=== PATIENT | female | born 1955 | race African-American/Black ===

== ENCOUNTER 2018-09-08 23:30 | Inpatient (IN) ==
[2018-09-09] MEDS ORDERED: ONDANSETRON 4 MG/2 ML VIAL IV STA (00:23)
[2018-09-09] MEDS ORDERED: MORPHINE 4 MG/1 ML VIAL IV STA (00:23)
[2018-09-09] MEDS ORDERED: hydrALAZINE 20 MG/1 ML VIAL IV STA (00:34)
[2018-09-09] MEDS ORDERED: cefTRIAXone 1,000 MG in SODIUM CHLORIDE 0.9% 100 ML IV STA (01:00)
[2018-09-09] MEDS ORDERED: VANCOMYCIN INJ 1,500 MG in SODIUM CHLORIDE 0.9% 500 ML IV STA (01:00)
[2018-09-09] MEDS ORDERED: cefTRIAXone 1,000 MG in SYRINGE 1 EACH IV STA (01:02)
[2018-09-09 01:17] LABS: Basophils % 0.5 % (0.0-0.8); Eosinophils % 0.1 % (0.00-10.9); Hematocrit 36.9 VOL% (35.7-47.0); Hemoglobin 12.2 GM/DL (12.0-16.0); Immature Granulocytes % 0.5 %; Immature Granulocytes Absolute 0.04 #; Lymphocytes % 11.7 % (21.3-54.2); Mean Corpuscular HGB Conc 33.1 GM/DL (32-36); Mean Corpuscular Hemoglobin 30 PG (27-34); Mean Corpuscular Volume 90.7 FL (87-102); Monocytes % 11.2 % (1.7-12.7); Neutrophils # 6.5 10*3/uL (1.4-7.4); Platelet Count 256 T/CUMM (130-400); Red Blood Count 4.07 MC/CUMM (3.8-5.5); Red Cell Distribution Width 12.4 % (9.3-17.3); White Blood Count 8.6 T/CUMM (4-12)
[2018-09-09 01:23] LABS: PT Patient Result 10.8 SECS
[2018-09-09 01:41] LABS: Albumin 3.4 G/DL (3.4-5.0); Bilirubin,Total 0.9 MG/DL (0.2-1.0); Calcium 9.3 MG/DL (8.5-10.1); Osmolality,Calculated 279.2 MOS/KG (273-304); Potassium 4.6 MMOL/L (3.5-5.1); Total Protein 7.9 G/DL (6.4-8.3)
[2018-09-09 02:02] LABS: Lymphocytes,Synovial Fluid 4 %; Neutrophils,Synovial Fluid 96 %
[2018-09-09 02:10] LABS: Lactic Acid 0.9 MMOL/L (0.4-2.0)
[2018-09-09 02:29] LABS: Sedimentation Rate-Westergren 63 MM/HR (0-30)
[2018-09-09] MEDS ORDERED: VANCOMYCIN 1,000 MG VIAL ONE ×2 (02:54→03:03)
[2018-09-09] MEDS ORDERED: ONDANSETRON 4 MG/2 ML VIAL IV PRN (02:59)
[2018-09-09] MEDS ORDERED: GLUCAGON 1 MG VIAL IM PRN (02:59)
[2018-09-09] MEDS ORDERED: diphenhydrAMINE CAP 25 MG CAPSULE PO PRN (02:59)
[2018-09-09] MEDS ORDERED: ZALEPLON 5 MG CAPSULE PO PRN (02:59)
[2018-09-09] MEDS ORDERED: MORPHINE 4 MG/1 ML VIAL IV PRN (02:59)
[2018-09-09] MEDS ORDERED: PROMETHAZINE 25 MG/1 ML VIAL IM PRN (02:59)
[2018-09-09] MEDS ORDERED: NICOTINE 21 MG/24 HR PATCH TRANSDERM PRN (02:59)
[2018-09-09] MEDS ORDERED: LACTULOSE 20 GM/30 ML UDCUP PO PRN (02:59)
[2018-09-09] MEDS ORDERED: ACETAMINOPHEN 325 MG TABLET PO PRN (02:59)
[2018-09-09] MEDS: SODIUM CHLORIDE 0.9% 1,000 ML IV SCH ×2 (05:43→18:07)
[2018-09-09] MEDS: INSULIN ASPART PROTAMINE/ASPART 70/30 100 UNIT/ML SUBCUT SCH ×2 (09:32→20:03)
[2018-09-09] MEDS: POTASSIUM CHLORIDE 10 MEQ TABLET PO SCH (09:34)
[2018-09-09] MEDS: LOSARTAN 50 MG TABLET PO SCH ×2 (09:34→20:03)
[2018-09-09] MEDS: PANTOPRAZOLE 40 MG TABLET PO SCH (09:34)
[2018-09-09] MEDS: CARVEDILOL 3.125 MG TABLET PO SCH ×2 (09:34→18:56)
[2018-09-09] MEDS: ASPIRIN EC 81 MG TABLET PO SCH (09:35)
[2018-09-09] MEDS: INSULIN REGULAR 100 UNIT/ML SUBCUT SCH ×4 (09:43→20:03)
[2018-09-09 09:57] LABS: Cholesterol Crystals None Seen /LPF
[2018-09-09] MEDS ORDERED: INSULIN ASPART PROTAMINE/ASPART 70/30 100 UNIT/ML SUBCUT SCH (12:00)
[2018-09-09] MEDS: DEXTROSE 50% 25 GM/50 ML SYRINGE IV PRN ×2 (15:34→21:58)
[2018-09-09] MEDS: LOVASTATIN 20 MG TABLET PO SCH (18:57)
[2018-09-09] MEDS: NAPROXEN 500 MG TABLET PO SCH (20:03)
[2018-09-09] MEDS: hydrALAZINE 20 MG/1 ML VIAL IV PRN (20:04)
[2018-09-09] MEDS: VANCOMYCIN INJ 1,500 MG in SODIUM CHLORIDE 0.9% 500 ML IV SCH (22:00)
[2018-09-09] MEDS ORDERED: CYCLOBENZAPRINE 10 MG TABLET PO PRN (23:55)
[2018-09-10] MEDS: cefTRIAXone 1,000 MG in SYRINGE 1 EACH IV SCH (03:12)
[2018-09-10 05:33] LABS: Calcium 8.5 MG/DL (8.5-10.1); Potassium 4.5 MMOL/L (3.5-5.1)
[2018-09-10 05:38] LABS: Basophils % 0.5 % (0.0-0.8); Eosinophils % 0.6 % (0.00-10.9); Hematocrit 33.1 VOL% (35.7-47.0); Hemoglobin 10.7 GM/DL (12.0-16.0); Immature Granulocytes % 0.2 %; Immature Granulocytes Absolute 0.01 #; Lymphocytes # 1.1 10*3/uL (1.4-4.0); Lymphocytes % 16.9 % (21.3-54.2); Mean Corpuscular HGB Conc 32.3 GM/DL (32-36); Mean Corpuscular Hemoglobin 30 PG (27-34); Mean Corpuscular Volume 91.9 FL (87-102); Mean Platelet Volume 11.2 FL (9.6-12.0); Neutrophils # 4.2 10*3/uL (1.4-7.4); Neutrophils % 66.8 % (38.7-73.9); Platelet Count 219 T/CUMM (130-400); Red Cell Distribution Width 12.7 % (9.3-17.3); White Blood Count 6.3 T/CUMM (4-12)
[2018-09-10] MEDS: INSULIN REGULAR 100 UNIT/ML SUBCUT SCH ×4 (08:25→21:35)
[2018-09-10] MEDS: CARVEDILOL 3.125 MG TABLET PO SCH ×3 (08:42→17:24)
[2018-09-10] MEDS: PANTOPRAZOLE 40 MG TABLET PO SCH (08:43)
[2018-09-10] MEDS: ASPIRIN EC 81 MG TABLET PO SCH (08:43)
[2018-09-10] MEDS: LOSARTAN 50 MG TABLET PO SCH ×2 (08:43→21:45)
[2018-09-10] MEDS: INSULIN ASPART PROTAMINE/ASPART 70/30 100 UNIT/ML SUBCUT SCH ×2 (08:43→21:46)
[2018-09-10] MEDS: POTASSIUM CHLORIDE 10 MEQ TABLET PO SCH (08:43)
[2018-09-10] MEDS: NAPROXEN 500 MG TABLET PO SCH ×2 (08:43→21:45)
[2018-09-10] MEDS: VANCOMYCIN INJ 1,500 MG in SODIUM CHLORIDE 0.9% 500 ML IV SCH (15:55)
[2018-09-10] MEDS: LOVASTATIN 20 MG TABLET PO SCH (17:24)
[2018-09-10] MEDS: SODIUM CHLORIDE 0.9% 1,000 ML IV SCH (23:15)
[2018-09-11] MEDS: cefTRIAXone 1,000 MG in SYRINGE 1 EACH IV SCH (07:12)
[2018-09-11 07:19] LABS: Basophils # 0.1 10*3/uL (0.0-0.2); Basophils % 1.1 % (0.0-0.8); Eosinophils # 0.2 10*3/uL (0.0-0.87); Eosinophils % 3.2 % (0.00-10.9); Hemoglobin 10.1 GM/DL (12.0-16.0); Immature Granulocytes % 0.2 %; Immature Granulocytes Absolute 0.01 #; Lymphocytes % 20.3 % (21.3-54.2); Mean Corpuscular HGB Conc 31.6 GM/DL (32-36); Mean Corpuscular Hemoglobin 30 PG (27-34); Mean Corpuscular Volume 94.1 FL (87-102); Mean Platelet Volume 11.3 FL (9.6-12.0); Monocytes # 0.7 10*3/uL (0.11-0.8); Monocytes % 14.3 % (1.7-12.7); Neutrophils # 2.9 10*3/uL (1.4-7.4); Neutrophils % 60.9 % (38.7-73.9); Platelet Count 198 T/CUMM (130-400); White Blood Count 4.7 T/CUMM (4-12)
[2018-09-11 07:38] LABS: Calcium 8.9 MG/DL (8.5-10.1); Osmolality,Calculated 281.7 MOS/KG (273-304)
[2018-09-11] MEDS ORDERED: traMADol 50 MG TABLET PO PRN (08:58)
[2018-09-11] MEDS: INSULIN REGULAR 100 UNIT/ML SUBCUT SCH ×4 (09:46→21:21)
[2018-09-11] MEDS: ASPIRIN EC 81 MG TABLET PO SCH (09:47)
[2018-09-11] MEDS: CARVEDILOL 3.125 MG TABLET PO SCH ×2 (09:47→16:31)
[2018-09-11] MEDS: POTASSIUM CHLORIDE 10 MEQ TABLET PO SCH (09:47)
[2018-09-11] MEDS: LOSARTAN 50 MG TABLET PO SCH ×2 (09:47→21:22)
[2018-09-11] MEDS: PANTOPRAZOLE 40 MG TABLET PO SCH (09:48)
[2018-09-11] MEDS: INSULIN ASPART PROTAMINE/ASPART 70/30 100 UNIT/ML SUBCUT SCH ×2 (09:49→21:23)
[2018-09-11] MEDS: VANCOMYCIN INJ 1,500 MG in SODIUM CHLORIDE 0.9% 500 ML IV SCH (09:49)
[2018-09-11] MEDS ORDERED: VANCOMYCIN INJ 1,500 MG in SODIUM CHLORIDE 0.9% 500 ML IV SCH (15:00)
[2018-09-11] MEDS: LOVASTATIN 20 MG TABLET PO SCH (16:31)
[2018-09-11] MEDS: CEFEPIME 1,000 MG in SYRINGE 1 EACH IV SCH ×2 (16:31→23:19)
[2018-09-11] MEDS ORDERED: LACTATED RINGERS 1,000 ML IV SCH (23:30)
[2018-09-12] MEDS: hydrALAZINE 20 MG/1 ML VIAL IV PRN (04:33)
[2018-09-12 05:41] LABS: Basophils # 0.1 10*3/uL (0.0-0.2); Basophils % 1.6 % (0.0-0.8); Eosinophils # 0.1 10*3/uL (0.0-0.87); Eosinophils % 2.8 % (0.00-10.9); Hematocrit 30.7 VOL% (35.7-47.0); Immature Granulocytes % 0.5 %; Immature Granulocytes Absolute 0.02 #; Lymphocytes # 1.1 10*3/uL (1.4-4.0); Lymphocytes % 24.4 % (21.3-54.2); Mean Corpuscular HGB Conc 32.6 GM/DL (32-36); Mean Corpuscular Hemoglobin 30 PG (27-34); Mean Corpuscular Volume 92.7 FL (87-102); Mean Platelet Volume 11.2 FL (9.6-12.0); Monocytes # 0.5 10*3/uL (0.11-0.8); Monocytes % 12.3 % (1.7-12.7); Neutrophils # 2.5 10*3/uL (1.4-7.4); Neutrophils % 58.4 % (38.7-73.9); Platelet Count 231 T/CUMM (130-400); Red Blood Count 3.31 MC/CUMM (3.8-5.5); Red Cell Distribution Width 12.6 % (9.3-17.3); White Blood Count 4.3 T/CUMM (4-12)
[2018-09-12 06:11] LABS: Osmolality,Calculated 287.1 MOS/KG (273-304); Potassium 4.4 MMOL/L (3.5-5.1)
[2018-09-12] MEDS: INSULIN REGULAR 100 UNIT/ML SUBCUT SCH ×4 (06:46→23:16)
[2018-09-12] MEDS: CARVEDILOL 3.125 MG TABLET PO SCH ×3 (06:47→17:21)
[2018-09-12] MEDS: LOSARTAN 50 MG TABLET PO SCH ×3 (06:47→23:03)
[2018-09-12] MEDS: CEFEPIME 1,000 MG in SYRINGE 1 EACH IV SCH ×2 (06:48→15:41)
[2018-09-12] MEDS ORDERED: BACITRACIN OINT 0.9 GM PACK TOP ONE (08:21)
[2018-09-12] MEDS ORDERED: MAGNESIUM HYDROXIDE SUSP 30 ML UDCUP PO PRN (08:39)
[2018-09-12] MEDS ORDERED: ONDANSETRON 4 MG/2 ML VIAL ONE ×2 (08:56→09:08)
[2018-09-12] MEDS ORDERED: HYDROmorphone 2 MG/1 ML VIAL ONE (08:56)
[2018-09-12] MEDS: INSULIN ASPART PROTAMINE/ASPART 70/30 100 UNIT/ML SUBCUT SCH ×2 (09:00→23:25)
[2018-09-12] MEDS: HYDROmorphone 2 MG/1 ML VIAL IV PRN ×2 (09:00→09:15)
[2018-09-12] MEDS ORDERED: PROPOFOL 200 MG/20 ML VIAL IV ONE (09:07)
[2018-09-12] MEDS ORDERED: SEVOFLURANE 1 UNIT/15 MINUTE INH ONE (09:07)
[2018-09-12] MEDS ORDERED: MIDAZOLAM 2 MG/2 ML VIAL ONE (09:08)
[2018-09-12] MEDS ORDERED: NEOSTIGMINE 10 MG/10 ML VIAL ONE (09:08)
[2018-09-12] MEDS ORDERED: fentaNYL 100 MCG/2 ML VIAL ONE (09:08)
[2018-09-12] MEDS ORDERED: ROCURONIUM 100 MG/10 ML VIAL IV ONE (09:08)
[2018-09-12] MEDS ORDERED: GLYCOPYRROLATE 0.4 MG/2 ML VIAL ONE (09:08)
[2018-09-12] MEDS ORDERED: PHENYLEPHRINE 1 MG/10 ML SYRINGE IV ONE (09:08)
[2018-09-12] MEDS ORDERED: ONDANSETRON 4 MG/2 ML VIAL IV PRN (09:11)
[2018-09-12] MEDS ORDERED: hydrALAZINE 20 MG/1 ML VIAL ONE (09:15)
[2018-09-12] MEDS ORDERED: hydrALAZINE 20 MG/1 ML VIAL IV ONE (09:32)
[2018-09-12] MEDS: POTASSIUM CHLORIDE 10 MEQ TABLET PO SCH (13:41)
[2018-09-12] MEDS: ASPIRIN EC 81 MG TABLET PO SCH (13:41)
[2018-09-12] MEDS: PANTOPRAZOLE 40 MG TABLET PO SCH (13:42)
[2018-09-12] MEDS ORDERED: COLCHICINE 0.6 MG TABLET PO ONE ×2 (14:58→16:00)
[2018-09-12] MEDS: ALLOPURINOL 100 MG TABLET PO SCH (15:40)
[2018-09-12] MEDS: LOVASTATIN 20 MG TABLET PO SCH (17:21)
[2018-09-12] MEDS ORDERED: SODIUM PHOSPHATE ENEMA 133 ML BOTTLE RECTAL ONE (17:52)
[2018-09-12] MEDS: SIMETHICONE CHEW 125 MG TABLET PO PRN (23:03)
[2018-09-13] MEDS: CEFEPIME 1,000 MG in SYRINGE 1 EACH IV SCH ×4 (02:49→22:11)
[2018-09-13] MEDS: FONDAPARINUX 2.5 MG/0.5 ML SYRINGE SUBCUT SCH (02:50)
[2018-09-13 05:47] LABS: Basophils % 0.8 % (0.0-0.8); Eosinophils # 0.1 10*3/uL (0.0-0.87); Eosinophils % 1.8 % (0.00-10.9); Hemoglobin 10.6 GM/DL (12.0-16.0); Immature Granulocytes % 0.2 %; Immature Granulocytes Absolute 0.01 #; Lymphocytes # 0.8 10*3/uL (1.4-4.0); Lymphocytes % 15.6 % (21.3-54.2); Mean Corpuscular HGB Conc 31.2 GM/DL (32-36); Mean Corpuscular Hemoglobin 29 PG (27-34); Mean Corpuscular Volume 93.4 FL (87-102); Monocytes # 0.5 10*3/uL (0.11-0.8); Monocytes % 10.3 % (1.7-12.7); Neutrophils # 3.7 10*3/uL (1.4-7.4); Neutrophils % 71.3 % (38.7-73.9); Platelet Count 254 T/CUMM (130-400); Red Blood Count 3.64 MC/CUMM (3.8-5.5); Red Cell Distribution Width 12.7 % (9.3-17.3); White Blood Count 5.1 T/CUMM (4-12)
[2018-09-13 06:09] LABS: Calcium 9.3 MG/DL (8.5-10.1); Osmolality,Calculated 280.7 MOS/KG (273-304); Potassium 4.6 MMOL/L (3.5-5.1)
[2018-09-13] MEDS: SIMETHICONE CHEW 125 MG TABLET PO PRN (07:41)
[2018-09-13] MEDS: INSULIN REGULAR 100 UNIT/ML SUBCUT SCH ×4 (07:51→22:07)
[2018-09-13] MEDS: CARVEDILOL 3.125 MG TABLET PO SCH (08:45)
[2018-09-13] MEDS: LOSARTAN 50 MG TABLET PO SCH ×2 (08:45→22:06)
[2018-09-13] MEDS: BISACODYL 5 MG TABLET PO SCH (08:45)
[2018-09-13] MEDS: ASPIRIN EC 81 MG TABLET PO SCH (08:45)
[2018-09-13] MEDS: ALLOPURINOL 100 MG TABLET PO SCH (08:46)
[2018-09-13] MEDS: PANTOPRAZOLE 40 MG TABLET PO SCH (08:46)
[2018-09-13] MEDS: POTASSIUM CHLORIDE 10 MEQ TABLET PO SCH (08:46)
[2018-09-13] MEDS ORDERED: MELOXICAM 7.5 MG TABLET PO SCH (09:00)
[2018-09-13] MEDS ORDERED: ALLOPURINOL 100 MG TABLET PO SCH (09:00)
[2018-09-13] MEDS: INSULIN ASPART PROTAMINE/ASPART 70/30 100 UNIT/ML SUBCUT SCH ×2 (09:45→22:08)
[2018-09-13] MEDS ORDERED: amLODIPine 5 MG TABLET PO ONE (17:45)
[2018-09-13] MEDS: LOVASTATIN 20 MG TABLET PO SCH (19:20)
[2018-09-13] MEDS: hydrALAZINE 20 MG/1 ML VIAL IV PRN (19:22)
[2018-09-14] MEDS: FONDAPARINUX 2.5 MG/0.5 ML SYRINGE SUBCUT SCH (03:36)
[2018-09-14 06:09] LABS: Basophils # 0.1 10*3/uL (0.0-0.2); Basophils % 1.2 % (0.0-0.8); Eosinophils # 0.2 10*3/uL (0.0-0.87); Eosinophils % 3.7 % (0.00-10.9); Hemoglobin 10.2 GM/DL (12.0-16.0); Immature Granulocytes % 0.2 %; Immature Granulocytes Absolute 0.01 #; Lymphocytes # 1.1 10*3/uL (1.4-4.0); Mean Corpuscular HGB Conc 31.9 GM/DL (32-36); Mean Corpuscular Hemoglobin 30 PG (27-34); Mean Corpuscular Volume 94.4 FL (87-102); Mean Platelet Volume 11.8 FL (9.6-12.0); Monocytes # 0.5 10*3/uL (0.11-0.8); Monocytes % 10.9 % (1.7-12.7); Neutrophils # 2.5 10*3/uL (1.4-7.4); Platelet Count 181 T/CUMM (130-400); Red Blood Count 3.39 MC/CUMM (3.8-5.5); Red Cell Distribution Width 12.7 % (9.3-17.3); White Blood Count 4.3 T/CUMM (4-12)
[2018-09-14] MEDS: INSULIN REGULAR 100 UNIT/ML SUBCUT SCH ×4 (07:33→21:58)
[2018-09-14] MEDS: LOSARTAN 50 MG TABLET PO SCH ×2 (08:51→21:57)
[2018-09-14] MEDS: CARVEDILOL 6.25 MG TABLET PO SCH ×2 (08:51→17:07)
[2018-09-14] MEDS: ASPIRIN EC 81 MG TABLET PO SCH (08:51)
[2018-09-14] MEDS: POTASSIUM CHLORIDE 10 MEQ TABLET PO SCH (08:52)
[2018-09-14] MEDS: PANTOPRAZOLE 40 MG TABLET PO SCH (08:52)
[2018-09-14] MEDS: BISACODYL 5 MG TABLET PO SCH (08:52)
[2018-09-14] MEDS: amLODIPine 5 MG TABLET PO SCH (08:52)
[2018-09-14] MEDS: ALLOPURINOL 100 MG TABLET PO SCH (08:53)
[2018-09-14] MEDS: CEFEPIME 1,000 MG in SYRINGE 1 EACH IV SCH ×3 (08:53→22:05)
[2018-09-14] MEDS: INSULIN ASPART PROTAMINE/ASPART 70/30 100 UNIT/ML SUBCUT SCH ×2 (09:00→21:58)
[2018-09-14] MEDS: POLYETHYLENE GLYCOL POWDER 17 GM PACK PO SCH (13:35)
[2018-09-14] MEDS: LOVASTATIN 20 MG TABLET PO SCH (17:07)
[2018-09-15] MEDS: FONDAPARINUX 2.5 MG/0.5 ML SYRINGE SUBCUT SCH (03:12)
[2018-09-15] MEDS: INSULIN REGULAR 100 UNIT/ML SUBCUT SCH ×3 (07:54→20:46)
[2018-09-15] MEDS: CARVEDILOL 6.25 MG TABLET PO SCH (07:54)
[2018-09-15] MEDS: CEFEPIME 1,000 MG in SYRINGE 1 EACH IV SCH (07:55)
[2018-09-15] MEDS: POLYETHYLENE GLYCOL POWDER 17 GM PACK PO SCH (09:12)
[2018-09-15] MEDS: PANTOPRAZOLE 40 MG TABLET PO SCH (09:13)
[2018-09-15] MEDS: ALLOPURINOL 100 MG TABLET PO SCH (09:13)
[2018-09-15] MEDS: INSULIN ASPART PROTAMINE/ASPART 70/30 100 UNIT/ML SUBCUT SCH (09:13)
[2018-09-15] MEDS: POTASSIUM CHLORIDE 10 MEQ TABLET PO SCH (09:13)
[2018-09-15] MEDS: amLODIPine 5 MG TABLET PO SCH (09:13)
[2018-09-15] MEDS: LOSARTAN 50 MG TABLET PO SCH (09:13)
[2018-09-15] MEDS: ASPIRIN EC 81 MG TABLET PO SCH (09:14)
[2018-09-15 09:30] LABS: Cholesterol Crystals None Seen /LPF
[2018-09-15 11:19] LABS: Lymphocytes,Synovial Fluid 5 %; Neutrophils,Synovial Fluid 91 %
[2018-09-15 11:37] VITALS: BP 166/71
[2018-09-15] MEDS ORDERED: AMOXICILLIN/CLAV 875 MG TABLET PO SCH (14:30)
== END 2018-09-15 16:30 | disposition home health service (06) | DRG 488 ==
LOC: EDBD → EDUNIT# → N.ED 23:30 → N.EDINP 23:30 → N.3E 09-09 03:18 → SUATTDRO 09-10 14:34 → N.3E 09-15 16:32
PROVIDERS: ADMIT Internal Medicine; ATTEND Internal Medicine

== ENCOUNTER 2020-11-23 11:54 | Observation (INO) ==
[2020-11-23] MEDS ORDERED: SODIUM CHLORIDE 0.9% 1,000 ML IV STA (12:27)
[2020-11-23] MEDS ORDERED: diphenhydrAMINE 50 MG/1 ML VIAL IV STA (12:28)
[2020-11-23] MEDS ORDERED: FAMOTIDINE 20 MG/2 ML VIAL IV STA (12:28)
[2020-11-23] MEDS ORDERED: methylPREDNISolone SOD SUC 125 MG/2 ML VIAL IV STA (12:28)
[2020-11-23] MEDS ORDERED: hydrALAZINE 20 MG/1 ML VIAL IV STA (12:31)
[2020-11-23 13:04] LABS: Basophils % 0.3 % (0.0-0.8); Eosinophils % 0.3 % (0.00-10.9); Hematocrit 37.2 VOL% (35.7-47.0); Hemoglobin 12.2 GM/DL (12.0-16.0); Immature Granulocytes % 0.3 %; Immature Granulocytes Absolute 0.02 #; Lymphocytes # 1.1 10*3/uL (1.4-4.0); Lymphocytes % 16.4 % (21.3-54.2); Mean Corpuscular HGB Conc 32.8 GM/DL (32-36); Mean Corpuscular Volume 93.5 FL (87-102); Monocytes % 10.6 % (1.7-12.7); Neutrophils % 72.1 % (38.7-73.9); Platelet Count 261 T/CUMM (130-400); Red Blood Count 3.98 MC/CUMM (3.8-5.5); Red Cell Distribution Width 12.9 % (9.3-17.3); White Blood Count 6.6 T/CUMM (4-12)
[2020-11-23 13:31] LABS: Alanine Aminotransferase 13 U/L (13-56); Albumin 3.4 G/DL (3.4-5.0); Alkaline Phosphatase 81 U/L (45-117); Aspartate Amino Transferase 24 U/L (0-37); Blood Urea Nitrogen 26 MG/DL (7-18); CKMB % 2.2 %; Carbon Dioxide 27 MMOL/L (21-32); Estimated Glom Filtration Rate 42 ML/MIN; Glucose 222 MG/DL (74-106); Osmolality,Calculated 279.2 MOS/KG (273-304); Potassium 4.1 MMOL/L (3.5-5.1); Sodium 134 MMOL/L (136-145); Total Protein 8.1 G/DL (6.4-8.3); Troponin I < 0.015 NG/ML (0.00-0.045)
[2020-11-23] MEDS ORDERED: LORazepam 2 MG/1 ML VIAL IV STA (13:44)
[2020-11-23 13:46] LABS: Barbiturates Screen,Urine Negative (Negative); Benzodiazepines Screen,Urine Negative (Negative); Cannabinoid Screen,Urine Negative (Negative); Opiate Screen,Urine Negative (Negative); Phencyclidine Screen,Urine Negative (Negative)
[2020-11-23] MEDS ORDERED: GLUCAGON 1 MG VIAL IM PRN (14:47)
[2020-11-23] MEDS ORDERED: ONDANSETRON 4 MG/2 ML VIAL IV PRN (14:47)
[2020-11-23] MEDS ORDERED: ACETAMINOPHEN 325 MG TABLET PO PRN (14:47)
[2020-11-23] MEDS ORDERED: DOCUSATE SODIUM 100 MG CAPSULE PO PRN (14:47)
[2020-11-23] MEDS ORDERED: diphenhydrAMINE CAP 25 MG CAPSULE PO PRN (14:47)
[2020-11-23] MEDS ORDERED: DEXTROSE 50% 25 GM/50 ML VIAL IV PRN (14:47)
[2020-11-23] MEDS ORDERED: HYDROCORTISONE 2.5% CREAM 30 GM TUBE TOP PRN (15:11)
[2020-11-23] MEDS: hydrALAZINE 20 MG/1 ML VIAL IV PRN (16:01)
[2020-11-23 16:12] LABS: Thyroid Stimulating Hormone 0.596 uIU/ml (0.358-3.74)
[2020-11-23] MEDS: ENOXAPARIN 40 MG/0.4 ML SYRINGE SUBCUT SCH (17:15)
[2020-11-23] MEDS: SIMVASTATIN 10 MG TABLET PO SCH (17:26)
[2020-11-23] MEDS: SODIUM CHLORIDE 0.9% 1,000 ML IV SCH (17:26)
[2020-11-23] MEDS: carvediloL 12.5 MG TABLET PO SCH (17:26)
[2020-11-23] MEDS: INSULIN LISPRO 100 UNIT/ML SUBCUT SCH ×2 (17:26→21:50)
[2020-11-23] MEDS: methylPREDNISolone SOD SUC 40 MG/1 ML VIAL IV SCH (21:05)
[2020-11-23] MEDS: LOSARTAN 50 MG TABLET PO SCH (21:05)
[2020-11-24] MEDS: FAMOTIDINE 20 MG/2 ML VIAL IV SCH ×3 (00:27→14:12)
[2020-11-24] MEDS: SODIUM CHLORIDE 0.9% 1,000 ML IV SCH (05:28)
[2020-11-24] MEDS: hydrALAZINE 20 MG/1 ML VIAL IV PRN ×2 (05:28→09:23)
[2020-11-24 05:36] LABS: Hematocrit 36.1 VOL% (35.7-47.0); Immature Granulocytes % 0.4 %; Immature Granulocytes Absolute 0.03 #; Lymphocytes # 0.6 10*3/uL (1.4-4.0); Lymphocytes % 8.2 % (21.3-54.2); Mean Corpuscular HGB Conc 33.2 GM/DL (32-36); Mean Corpuscular Volume 90.9 FL (87-102); Mean Platelet Volume 11.4 FL (9.6-12.0); Neutrophils % 90.4 % (38.7-73.9); Platelet Count 237 T/CUMM (130-400); Red Blood Count 3.97 MC/CUMM (3.8-5.5); Red Cell Distribution Width 13.1 % (9.3-17.3)
[2020-11-24 06:01] LABS: Bilirubin,Total 0.7 MG/DL (0.2-1.0); Calcium 9.5 MG/DL (8.5-10.1); Osmolality,Calculated 289.8 MOS/KG (273-304); Potassium 4.1 MMOL/L (3.5-5.1); Total Protein 7.2 G/DL (6.4-8.3)
[2020-11-24] MEDS: methylPREDNISolone SOD SUC 40 MG/1 ML VIAL IV SCH (09:23)
[2020-11-24] MEDS: INSULIN LISPRO 100 UNIT/ML SUBCUT SCH ×4 (09:24→16:30)
[2020-11-24] MEDS: LOSARTAN 50 MG TABLET PO SCH ×2 (09:25→20:40)
[2020-11-24] MEDS: carvediloL 12.5 MG TABLET PO SCH ×2 (09:25→16:30)
[2020-11-24] MEDS: CETIRIZINE 10 MG TABLET PO SCH (10:15)
[2020-11-24] MEDS ORDERED: ALUM/MAG/SIMETH/LIDO VISC 1:1 30 ML BOTTLE PO ONE (11:09)
[2020-11-24] MEDS: SIMVASTATIN 10 MG TABLET PO SCH (16:30)
[2020-11-24] MEDS: ENOXAPARIN 40 MG/0.4 ML SYRINGE SUBCUT SCH (16:30)
[2020-11-25] MEDS: INSULIN LISPRO 100 UNIT/ML SUBCUT SCH ×4 (03:12→12:58)
[2020-11-25 05:44] LABS: Basophils % 0.1 % (0.0-0.8); Hematocrit 35.7 VOL% (35.7-47.0); Hemoglobin 11.9 GM/DL (12.0-16.0); Immature Granulocytes % 0.4 %; Immature Granulocytes Absolute 0.04 #; Lymphocytes # 0.7 10*3/uL (1.4-4.0); Lymphocytes % 7.6 % (21.3-54.2); Mean Corpuscular HGB Conc 33.3 GM/DL (32-36); Mean Corpuscular Volume 91.5 FL (87-102); Mean Platelet Volume 11.2 FL (9.6-12.0); Monocytes % 6.6 % (1.7-12.7); Neutrophils % 85.3 % (38.7-73.9); Platelet Count 246 T/CUMM (130-400); Red Cell Distribution Width 13.5 % (9.3-17.3); White Blood Count 9.8 T/CUMM (4-12)
[2020-11-25 06:07] LABS: Calcium 9.5 MG/DL (8.5-10.1); Osmolality,Calculated 292.5 MOS/KG (273-304); Potassium 4.2 MMOL/L (3.5-5.1)
[2020-11-25] MEDS ORDERED: ASCORBIC ACID 500 MG TABLET PO SCH (09:00)
[2020-11-25] MEDS ORDERED: AMIODARONE 200 MG TABLET PO SCH ×2 (09:00→21:00)
[2020-11-25] MEDS ORDERED: APIXABAN 5 MG TABLET PO SCH (09:00)
[2020-11-25] MEDS ORDERED: ASPIRIN EC 81 MG TABLET PO SCH (09:00)
[2020-11-25] MEDS: carvediloL 12.5 MG TABLET PO SCH (09:22)
[2020-11-25] MEDS: LOSARTAN 50 MG TABLET PO SCH (09:22)
[2020-11-25] MEDS: CETIRIZINE 10 MG TABLET PO SCH (09:22)
[2020-11-25 11:14] LABS: Bilirubin,Urine Negative (Negative); Blood, Urine Negative (Negative); Glucose,Urine (UA) >=500 mg/dL (Negative); Ketones,Urine Negative (Negative); Nitrite,Urine Negative (Negative); Protein,Urine 30 MG/DL; RBC,Urine 2 /HPF (0-4); Squamous Epithelial Cell,Urine Occasional /HPF (0-10); Urine Appearance CLEAR (Clear); Urine Color Yellow (Yellow); Urine Specific Gravity 1.017 (1.001-1.035); Urine Urobilinogen < 2.0 EU/DL (0.2-1.0); WBC,Urine 9 /HPF (0-6)
[2020-11-25 12:32] VITALS: BP 126/60
[2020-11-25] MEDS: FAMOTIDINE 20 MG/2 ML VIAL IV SCH (12:58)
== END 2020-11-25 14:39 | disposition home or self-care (01) ==
LOC: EDUNIT# → EDBD → N.EDINP 11:54 → N.ED 11:54 → N.TELEN 16:00
PROVIDERS: ADMIT Internal Medicine; ATTEND Internal Medicine

== ENCOUNTER 2021-04-03 06:27 | Observation (INO) ==
[2021-04-03 07:34] LABS: Basophils % 0.7 % (0.0-0.8); Eosinophils # 0.1 10*3/uL (0.0-0.87); Eosinophils % 1.1 % (0.00-10.9); Hematocrit 35.7 VOL% (35.7-47.0); Hemoglobin 11.6 GM/DL (12.0-16.0); Immature Granulocytes % 0.5 %; Immature Granulocytes Absolute 0.02 #; Lymphocytes # 0.7 10*3/uL (1.4-4.0); Lymphocytes % 15.3 % (21.3-54.2); Mean Corpuscular HGB Conc 32.5 GM/DL (32-36); Mean Corpuscular Volume 94.7 FL (87-102); Mean Platelet Volume 12.1 FL (9.6-12.0); Monocytes % 6.8 % (1.7-12.7); Neutrophils % 75.6 % (38.7-73.9); Platelet Count 222 T/CUMM (130-400); Red Blood Count 3.77 MC/CUMM (3.8-5.5); White Blood Count 4.4 T/CUMM (4-12)
[2021-04-03 07:36] LABS: Albumin 3.3 G/DL (3.4-5.0); Bilirubin,Total 0.5 MG/DL (0.2-1.0); Calcium 9.3 MG/DL (8.5-10.1); Total Protein 7.6 G/DL (6.4-8.2)
[2021-04-03 07:44] LABS: INR 1.2; PT Patient Result 12.9 SECS (10.5-12.0)
[2021-04-03 07:55] LABS: Bilirubin,Urine Negative (Negative); Blood, Urine Negative (Negative); Glucose,Urine (UA) Negative (Negative); Hyaline Casts,Urine 1 /LPF (0-3); Ketones,Urine Negative (Negative); Mucus,Urine Occasional /LPF (Occasional); Nitrite,Urine Negative (Negative); Protein,Urine 30 MG/DL; RBC,Urine 1 /HPF (0-4); Squamous Epithelial Cell,Urine Occasional /HPF (0-10); Urine Appearance CLEAR (Clear); Urine Color Yellow (Yellow); Urine Specific Gravity 1.011 (1.001-1.035); Urine Urobilinogen < 2.0 EU/DL (0.2-1.0)
[2021-04-03 08:00] LABS: Barbiturates Screen,Urine Negative (Negative); Benzodiazepines Screen,Urine Negative (Negative); Cannabinoid Screen,Urine Negative (Negative); Opiate Screen,Urine Negative (Negative); Phencyclidine Screen,Urine Negative (Negative)
[2021-04-03] MEDS ORDERED: SODIUM CHLORIDE 0.9% 1,000 ML IV STA (09:17)
[2021-04-03] MEDS ORDERED: DEXTROSE 50% 25 GM/50 ML VIAL IV PRN ×2 (09:47)
[2021-04-03] MEDS ORDERED: ONDANSETRON 4 MG/2 ML VIAL IV PRN (09:47)
[2021-04-03] MEDS ORDERED: GLUCAGON 1 MG VIAL IM PRN ×2 (09:47)
[2021-04-03] MEDS: INSULIN LISPRO 100 UNIT/ML SUBCUT SCH ×3 (12:37→20:38)
[2021-04-03] MEDS ORDERED: amLODIPine 5 MG TABLET PO ONE (13:58)
[2021-04-03] MEDS: carvediloL 25 MG TABLET PO SCH (16:16)
[2021-04-03] MEDS: LOSARTAN 50 MG TABLET PO SCH (20:38)
[2021-04-03] MEDS: TICAGRELOR 90 MG TABLET PO SCH (20:38)
[2021-04-03] MEDS: APIXABAN 5 MG TABLET PO SCH (20:38)
[2021-04-04 06:00] LABS: Basophils # 0.1 10*3/uL (0.0-0.2); Basophils % 1.3 % (0.0-0.8); Eosinophils # 0.1 10*3/uL (0.0-0.87); Eosinophils % 2.6 % (0.00-10.9); Hemoglobin 10.2 GM/DL (12.0-16.0); Immature Granulocytes % 0.3 %; Immature Granulocytes Absolute 0.01 #; Lymphocytes # 1.1 10*3/uL (1.4-4.0); Lymphocytes % 29.7 % (21.3-54.2); Mean Corpuscular HGB Conc 31.9 GM/DL (32-36); Mean Corpuscular Volume 97.3 FL (87-102); Monocytes % 10.2 % (1.7-12.7); Neutrophils % 55.9 % (38.7-73.9); Platelet Count 174 T/CUMM (130-400); Red Blood Count 3.29 MC/CUMM (3.8-5.5); Red Cell Distribution Width 13.2 % (9.3-17.3); White Blood Count 3.8 T/CUMM (4-12)
[2021-04-04 06:33] LABS: Risk Ratio 3.69; VLDL CHOLESTEROL 30.8 MG/DL
[2021-04-04 06:35] LABS: Alanine Aminotransferase < 9 U/L (13-56); Albumin 2.8 G/DL (3.4-5.0); Alkaline Phosphatase 59 U/L (45-117); Aspartate Amino Transferase 14 U/L (0-37); Blood Urea Nitrogen 19 MG/DL (7-18); Calcium 9.2 MG/DL (8.5-10.1); Carbon Dioxide 24 MMOL/L (21-32); Estimated Glom Filtration Rate 49 ML/MIN; Glucose 135 MG/DL (74-106); Osmolality,Calculated 282.4 MOS/KG (273-304); Potassium 4.1 MMOL/L (3.5-5.1); Sodium 140 MMOL/L (136-145); Total Protein 6.3 G/DL (6.4-8.2)
[2021-04-04] MEDS: INSULIN LISPRO 100 UNIT/ML SUBCUT SCH (07:48)
[2021-04-04 08:20] VITALS: BP 144/64
[2021-04-04] MEDS ORDERED: ROSUVASTATIN 20 MG TABLET PO SCH (09:00)
[2021-04-04] MEDS ORDERED: PANTOPRAZOLE 40 MG TABLET PO SCH (09:00)
[2021-04-04] MEDS ORDERED: amLODIPine 5 MG TABLET PO SCH ×2 (09:00)
[2021-04-04] MEDS: TICAGRELOR 90 MG TABLET PO SCH (09:13)
[2021-04-04] MEDS: LOSARTAN 50 MG TABLET PO SCH (09:13)
[2021-04-04] MEDS: APIXABAN 5 MG TABLET PO SCH (09:13)
[2021-04-04] MEDS: carvediloL 25 MG TABLET PO SCH (09:14)
== END 2021-04-04 10:52 | disposition home or self-care (01) ==
LOC: EDUNIT# → EDBD → N.EDINP 06:27 → N.ED 06:27 → N.TELEN 10:52
PROVIDERS: ADMIT Internal Medicine; ATTEND Internal Medicine